=== PATIENT | male | born 1975 | race Caucasian/White ===

== ENCOUNTER 2020-10-26 18:31 | Emergency (ER) | payer SELFPAY ==
[2020-10-26 18:41] VITALS: BP 144/98; PULSE 76; RESP 18; TEMP 36.7; O2SAT 100
--- NOTE | 2020-10-26 18:54 | ED.GENADULT ---
HPI - General Adult General Chief complaint: Skin/Abscess/Foreign Body Stated complaint: male genital discomfort Source: patient Mode of arrival: ambulatory Limitations: no limitations History of Present Illness HPI narrative: 45 y/o male. PMHx None reported. Presents to [facility] today with acute complaints of a tender lesion to his groin, and he thinks he may have MRSA again . Client states that in the past 3 days the area has become more tender and enlarged, and he squeezed it and pus came out . He states to have had a MRSA infection before just like this . No fever, chills. No penile pain, discharge, or urinary issues. He states to not be interested in venereal Dx testing, as he reports he has already been tested for everything and it was negative Client is without additional acute complaints of illness upon exam. Related Data Allergies Allergy/AdvReac Type Severity Reaction Status Date / Time lidocaine AdvReac Intermediate Shakiness Verified 10/26/20 18:52 Review of Systems Review of Systems: CONSTITUTIONAL: Denies fever, chills, sweats. EYES: Denies visual changes, redness, discharge. ENT: Denies rhinorrhea, congestion, sore throat, otalgia. CARDIOVASCULAR: Denies chest pain, palpitations, edema. RESPIRATORY: Denies dyspnea, wheezing, cough GASTROINTESTINAL: Denies abdominal pain, nausea, vomiting, diarrhea. GENITOURINARY: Denies dysuria, hematuria, abnormal discharge. Positive wound on genitalia. SKIN: Denies rash or itching. MUSCULOSKELETAL: Denies acute back pain, joint pain, or myalgia. NEUROLOGIC: Denies numbness, or focal weakness. PSYCHIATRIC: Denies anxiety or depression. All systems reviewed & are unremarkable except as noted in HPI and below PMFSH Family History Family History Father Hypertension Family history of cardiovascular disease Social History Social History Smoking status: Light tobacco smoker Alcohol intake: current Gender identity (if verbalized by the patient): Male Exam Narrative: GENERAL: This is a well-nourished, well-developed adult, in no apparent distress. HEAD: normocephalic, atraumatic. EYES: Sclera clear/white. NECK: Neck supple, non-tender. CARDIOVASCULAR: Regular rate and rhythm. RESPIRATORY: Clear to auscultation. GASTROINTESTINAL: Abdomen soft, non-tender, nondistended. SKIN: warm, intact with small pencil eraser sized tender lesion located to upper groin. Area is surrounding hair follicle with mild erythema. No fluctuance or active discharge. No additional areas of integumentary involvement. NEURO: Alert, active, and age appropriate. No focal neurologic deficits. EXTREMITIES: Negative. Course Vital Signs Vital signs: Vital Signs Temperature 36.7 C 10/26/20 18:41 Pulse Rate 76 10/26/20 18:41 Respiratory Rate 18 10/26/20 18:41 Blood Pressure 144/98 H 10/26/20 18:41 Pulse Oximetry 100 10/26/20 18:41 Temperature 36.7 C 10/26/20 18:41 Pulse Rate 76 10/26/20 18:41 Respiratory Rate 18 10/26/20 18:41 Blood Pressure 144/98 H 10/26/20 18:41 Pulse Oximetry 100 10/26/20 18:41 Medical Decision Making MDM Narrative Medical decision making narrative: -Suspect Folliculitis. -Start Bactrim DS and topical Mupirocin regimen. -Wash and cleanse are with mild soap and water, do not shave kevin-area until helaed, as the infection may spread or worsen. -PCP F/U 1 WK. -ER W/Emergent health status changes. Pt agrees. Differential Diagnosis Differential Diagnosis: Differential Diagnosis: Consideration of the following conditions may be warranted for the presenting problem, they are not final diagnoses: Cellulitis, Folliculitis, Contact dermatitis, Insect bite, Psoriasis, Dyshidrotic eczema, or other. Medical Records Medical records reviewed: Yes I reviewed the external patient's medical records. Vital Signs
== END 2020-10-26 19:05 | disposition home or self-care (01) ==
PROVIDERS: Emergency Provider Nurse Practitioner Adult Health
DX: L73.9 Follicular disorder, unspecified (principal); L03.314 Cellulitis of groin; F17.200 Nicotine dependence, unspecified, uncomplicated
CPT/HCPCS: 99213; G0463

== ENCOUNTER 2020-11-03 10:25 | Emergency (ER) | payer SELFPAY ==
[2020-11-03 10:37] VITALS: BP 121/77; PULSE 97; RESP 18; TEMP 36.9
[2020-11-03 10:47] VITALS: BP 121/77; PULSE 97; RESP 18; TEMP 36.9
--- NOTE | 2020-11-03 11:15 | ED.SKABFB ---
HPI - Skin/Abscess/Foreign Bdy General Chief complaint: Skin/Abscess/Foreign Body Stated complaint: Rash,Sore Throat,Fever Source: patient and RN notes reviewed Mode of arrival: ambulatory History of Present Illness HPI narrative: This is a 45-year-old male who presented to urgent care after being treated here for cellulitis associated with MRSA. Patient was given Bactrim and developed a rash in his upper body in upper and lower extremities. Patient notes that he has completed 8 days of his antibiotic treatment. He also notes that he became very itchy and took Benadryl to relieve his itching. We will stop patient's Bactrim in start clindamycin for total of 5 days. He also complains of a sore throat, subjective fever and fatigue. Patient will also be treated for pharyngitis. Patient was tested first Covid negative and strep negative MD complaint: rash Related Data Allergies Allergy/AdvReac Type Severity Reaction Status Date / Time lidocaine AdvReac Intermediate Shakiness Verified 10/26/20 18:52 Review of Systems Review of Systems: A 14 organ system Review of Systems was performed and pertinent positives included in the HPI, otherwise remaining ROS is negative. [facility] Family History Family History Father Hypertension Family history of cardiovascular disease Social History Social History Smoking status: Light tobacco smoker Alcohol intake: current Gender identity (if verbalized by the patient): Male Exam Narrative: GENERAL: This is a well-nourished, well-developed patient, in no apparent distress. HEAD: normocephalic, atraumatic. EYES: PERRL. Sclera clear/white. Vision is grossly intact. EARS: External ears normal, auditory canals clear and without drainage, TMs normal without perforation. Hearing grossly intact. NOSE: External nose normal with no obvious nasal discharge, nares without redness, no rhinorrhea. THROAT: Mucous membranes moist, posterior pharynx edema and erythematous. NECK: Neck supple, non-tender without lymphadenopathy, masses or thyromegaly. CARDIOVASCULAR: Regular rate and rhythm without murmurs, gallops, or rubs. RESPIRATORY: Clear to auscultation. Breath sounds equal bilaterally. No wheezes, rales, or rhonchi. GASTROINTESTINAL: Abdomen soft, non-tender, nondistended. Bowel sounds are active. No hepato-splenomegaly, or palpable masses. No guarding. SKIN: small papule rash on chest and upper lower extremity. NEURO: awake, alert, and oriented to person, place and time. There were no obvious focal neurologic abnormalities. Steady gait EXTREMITIES: Normal range of motion. No edema. No calf tenderness. Negative Homans sign bilaterally. BACK: Nontender without deformity or crepitance. No flank tenderness. Course Course Emergency Course: Patient will discharge home with clindamycin to treat pharyngitis as well as his cellulitis and prednisone for his allergic reaction Vital Signs Vital signs: Vital Signs Temperature 98.5 F 11/03/20 10:37 Pulse Rate 97 11/03/20 10:37 Respiratory Rate 18 11/03/20 10:37 Blood Pressure 121/77 11/03/20 10:37 Temperature 98.5 F 11/03/20 10:47 Pulse Rate 97 11/03/20 10:47 Respiratory Rate 18 11/03/20 10:47 Blood Pressure 121/77 11/03/20 10:47 MDM - Skin/Abscess/Foreign Bdy Differential Diagnosis Differential diagnosis: Likely allergic reaction to drug, cellulitis, contact dermatitis and other (Pharyngitis) Lab Data Attestation: I reviewed the patient's lab results. Labs: Strep Screen Presumptive Negative *(Reference Range: Negative)* Discharge Plan Discharge Clinical Impression: Cellulitis Qualifiers: Site of cellulitis: unspecified site Qualified Code(s): L03.90 - Cellulitis, unspecified Contact dermatitis Qualifiers: Contact dermatitis type: allergic Contac
== END 2020-11-03 11:35 | disposition home or self-care (01) ==
PROVIDERS: Emergency Provider Nurse Practitioner
DX: L03.90 Cellulitis, unspecified (principal); L23.3 Allergic contact dermatitis due to drugs in contact with skin; J02.9 Acute pharyngitis, unspecified; Z20.822 Contact with and (suspected) exposure to COVID-19; F17.200 Nicotine dependence, unspecified, uncomplicated
CPT/HCPCS: 87081; 87426; 87880; 99213; C9803; G0463